=== PATIENT | female | born 1965 | race Caucasian/White ===

== ENCOUNTER 2023-04-20 09:19 | Day surgery (SDC) | payer OTHER ==
[2023-04-16 16:29] VITALS: BMI 30.1
[2023-04-20] MEDS: LACTATED RINGERS 1,000 ML IV SCH ×2 (09:14→15:18)
[~2023-04-20 09:19] MED LIST: ACETAMINOPHEN TAB 500 MG TAB PO PRN; DEXAMETHASONE SOD PHOSPHATE 10 MG/ML 1 ML VIAL IV PRN; DEXAMETHASONE SOD PHOSPHATE 4 MG/ML 1 ML VIAL IV ONE; DOCUSATE 100 MG CAP PO PRN; FAMOTIDINE 20 MG/2 ML VIAL IVP PRN; HYDROmorphone 0.5 MG/0.5 ML SYRINGE IVP PRN; KETOROLAC 15 MG/ML 1 ML VIAL IVP PRN; LIDOCAINE 1% (10MG/ML) FOR IV START INTRADERMA PRN; MIDAZOLAM 2 MG/2 ML VIAL IV PRN; ONDANSETRON 4 MG/2 ML VIAL IVP ONE; ONDANSETRON 4 MG/2 ML VIAL IVP PRN; ROPIVACAINE/EPI/CLONIDINE/KET 50 ML SYRINGE MISCELLANE PRN; TRANEXAMIC 1,000 MG/100ML-NACL 1,000 MG in SALINE 1 100ML.BAG IV PRN; TRANEXAMIC 1,000 MG/100ML-NACL 1,000 MG in SALINE 1 100ML.BAG IVPB PRN; VANCOMYCIN 1,500 MG in SODIUM CHLORIDE 0.9% 500 ML 500 ML IVPB PRN; oxyCODONE ER 10 MG TAB.ER.12H PO PRN
[2023-04-20] MEDS ORDERED: fentaNYL (PF) 50 MCG/ML 2 ML AMP IVP ONE (10:16)
[2023-04-20] MEDS ORDERED: MIDAZOLAM 2 MG/2 ML VIAL IVP ONE (10:16)
--- NOTE | 2023-04-20 10:28 | P.ANPRN ---
Procedure Note - Anesthesia - Nerve Block Performed Left Rufus Single Time Out Performed: Yes (1015) Date of Procedure: 04/20/23 Location of Patient: PreOp Indication: Dx/Pain Location (left hip), Requested by Surgeon Specifically requested for management of pain by DrBienvenido: Luis Chan Sedation Type: Sedate with meaningful contact maintained Position: Supine Catheter: None Needle Types: Pajunk Needle Gauge: 21 Ultrasound used to visualize needle placement: Yes Ultrasound used to observe medication spread: Yes Injectate: 0.5% Ropivacaine (see comment for volume) (25 mL +10 mL of normal saline) Blood Aspirated: No Pain Paresthesia on Injection Noted: No Resistance on Injection: Normal Image Stored and Saved: Yes Events: Uneventful and Well Tolerated
[2023-04-20] MEDS ORDERED: ROCURONIUM 10 MG/ML (5 ML VIAL) IV ONE (11:17)
[2023-04-20] MEDS ORDERED: HYDROmorphone (PF) 1 MG/ML ONE (11:17)
[2023-04-20] MEDS ORDERED: fentaNYL (PF) 50 MCG/ML 2 ML AMP ONE (11:17)
[2023-04-20] MEDS ORDERED: SUCCINYLCHOLINE CHLORIDE 200 MG/10 ML VIAL IV ONE (11:17)
[2023-04-20] MEDS ORDERED: SODIUM CHLORIDE 0.9% (PF) 10 ML VIAL ONE (11:17)
[2023-04-20] MEDS ORDERED: ROPIVACAINE 5 MG/ML 30 ML VIAL ONE (11:17)
[2023-04-20] MEDS ORDERED: PROPOFOL 10 MG/ML 20 ML VIAL IV ONE (11:17)
[2023-04-20] MEDS ORDERED: LIDOCAINE 1% INJ 10MG/ML (20 ML MDV) ONE (11:17)
[2023-04-20] MEDS ORDERED: TRANEXAMIC 1,000 MG/100ML-NACL PREMIX BAG ONE (11:17)
[2023-04-20] MEDS ORDERED: MIDAZOLAM 2 MG/2 ML VIAL ONE (11:17)
--- NOTE | 2023-04-20 13:42 | XR ---
EXAMINATION TYPE: XR Hip Limited LT DATE OF EXAM: 04/20/2023 CLINICAL HISTORY: Postoperative evaluation TECHNIQUE: Single portable view of the left hip was submitted. FINDINGS: Noted are changes of total hip arthroplasty with femoral and acetabular components appearin g well seated. Alignment is anatomic. Postsurgical soft tissue changes are evident. IMPRESSION: Satisfactory postoperative alignment
--- NOTE | 2023-04-20 13:42 | FL ---
EXAMINATION TYPE: FL guidance operating room DATE OF EXAM: 04/20/2023 HISTORY: Fluoroscopy time Total dose area product (DAP) in uGy*m?, mGy*cm? (or similar): 1.7400 IMPRESSION: 1. Fluoroscopy time.
[2023-04-20] MEDS ORDERED: HYDROmorphone 0.5 MG/0.5 ML SYRINGE IVP PRN ×2 (13:52)
[2023-04-20] MEDS ORDERED: NALOXONE 0.4 MG/ML 1 ML VIAL IV PRN (13:52)
[2023-04-20] MEDS ORDERED: HYDROcodone/APAP 5-325MG 1 EACH TAB PO PRN (13:52)
[2023-04-20] MEDS ORDERED: hydrOXYzine pamoate 25 MG CAP PO PRN (13:52)
[2023-04-20] MEDS ORDERED: HYDROmorphone 1 MG/ML 1 ML SYRINGE IVP PRN (13:52)
[2023-04-20] MEDS ORDERED: ONDANSETRON 4 MG/2 ML VIAL IVP PRN (13:52)
[2023-04-20] MEDS ORDERED: diphenhydrAMINE 50 MG/ML 1 ML VIAL IVP ONE ×2 (14:10)
[2023-04-20] MEDS ORDERED: droPERidol 5 MG/2 ML VIAL IVP ONE ×2 (14:25)
[2023-04-20] MEDS ORDERED: LACTATED RINGERS 1,000 ML IV ONE ×2 (14:26)
--- NOTE | 2023-04-20 18:46 | P.OP ---
Date of Procedure: 04/20/23 Preoperative Diagnosis: 1. Severe left hip osteoarthritis Postoperative Diagnosis: Same Procedure(s) Performed: 1. Left direct anterior total hip arthroplasty 2. Location of negative pressure incisional wound VAC, left hip less than 50 cm, incision measuring 15 cm Implants: 1. Yolis Trident II Acetabular Cup, Size #50 2. [place] Insignia Size # 6 Femoral Stem, High Offset 3. Biolox delta femoral head, 36 mm, - 5 mm neck Anesthesia: GATITO, regional Surgeon: Luis Chan Ground Crewman Aircraft Support #1: Nyla Silva Estimated Blood Loss (ml): 200 IV fluids (ml): 800 Pathology: none sent Condition: stable Disposition: PACU Indications for Procedure: I had a long discussion with the patient in the office on the potential risks and complications of an elective total hip replacement through a direct anterior approach. Risks discussed include, but are certainly not limited to, risks from anesthesia, superficial infection requiring local wound care or antibiotics, deep esteban-prosthetic joint infection and the treatment required to eradicate infection, intraoperative fracture, postoperative periprosthetic fracture, damage to local blood vessels or nerves particularly the lateral femoral cutaneous nerve, delayed wound healing requiring local wound care or possibly surgical debridement, hip dislocation, leg length discrepancy, soft tissue irritation around the total hip implant such as iliopsoas tendinitis or trochanteric bursitis, wear and osteolysis from the implants, squeaking or audible noises, groin pain, thigh pain, heterotopic ossification, stiffness, aseptic loosening of the implants, dissatisfaction with surgical outcome, need for revision surgery, DVT, PE, swelling of the operative extremity, acute coronary event, stroke, failure to thrive, and possibly loss of life or limb. T he patient understands that while these are the most common complications after an elective hip replacement there are certainly other less common complications possible. They were given ample time to ask questions regarding the potential complications of a hip replacement. Following our discussion the patient provided their verbal and written consent to go forward with an elective total hip replacement. Operative Findings: Severe left hip osteoarthritis Description of Procedure: The patient was identified in the preoperative holding area and the correct hip was marked with my initials. I reviewed the procedure and consent with the patient. All of their questions were answered. The patient was then brought back into the operating room by anesthesia. While on the gurney anesthesia was administered by the anesthesia team. Preoperative antibiotics and tranexamic acid were also given. After the patient was under anesthesia I examined their ankles to determine their preoperative leg length discrepancy. The skin over the anterior aspect of the hip was shaved to remove hair over the site of planned incision. Both feet and ankles were padded with webril and boots for the [place] were applied. The patient was then carefully transferred onto the [place] table. A perineal post was immediately placed. The arms were placed on arm hol ders and were well-padded. Both boots were secured to the spars on the [place] table. The patient was positioned so that the pelvis was centered over the post. Nonsterile drapes were applied. A timeout was performed identifying the correct patient, operative extremity, and procedure. At this point fluoroscopy was brought in to take preoperative images of the pelvis and operative hip. Using the standing AP pelvis from the office as a template, a comparable image was obtained with fluoroscopy. A metallic bar was used to create a bi-ischial line for use as a reference to leg length adjustments during the procedure. Global offset was also measured on both the operative and nonoperative leg. Fluoroscopy was then brought out and a pre-scrub using a chlorhexidine scrub brush was performed. The operative limb was then prepped and draped in the standard sterile fashion. An anterior longitudinal incision was made lateral and distal to the ASIS. The skin and subcutaneous tissues were incised sharply. The underlying tensor fascia was identified and incised in its midportion. The fascia was dissected free from the underlying muscle and the muscle belly was retracted. A blunt tipped cobra retractor was placed over the superior neck under the muscle fibers of the gluteus minimus. The deep enveloping fascia of the tensor was incised. The anterior leash of vessels were then identified and cauterized. The fascia between the rectus and the capsule was then incised and the pre-capsular fat was excised. A second Cobra was placed inferior to the neck. The interval between the rectus and iliocapsularis and the hip capsule was developed and a retractor was placed carefully over the anterior rim of the acetabulum. A T-shaped anterior capsulotomy was performed. The superior capsular leaflet was left in place in the inferior capsular flap was excised. The Cobra retractors were placed intracapsularly. We then made a femoral neck osteotomy according to preoperative and intraoperative templating and confirmed the level of the osteotomy using fluoroscopic imaging. The femoral head was removed, passed off to the back table, and sized. The superior capsular flap was excised. Retractors were placed circumferentially exposing the acetabulum. We then circumferentially debrided the acetabulum free of labrum and osteophytes. The pulvinar was removed to fully visualize the cotyloid fossa. We then sequentially reamed to achieve peripheral fit and excellent bleeding subchondral bone. The socket was thoroughly irrigated. The acetabular component was impacted into the appropriate position using fluoroscopy to guide version, inclination, and depth of insertion taking care to have a comparable image of the AP pelvis to the standing image taken in the office. An excellent press-fit was achieved and final position was confirmed using fluoroscopy. The press fit was augmented with bony cancellus dome screws. The liner was then impacted into the socket. Attention was then turned to the femur. The remnant dorsal lateral capsule was excised. The short external rotators were visible and protected. A bone hook was used to confirm appropriate translation of the trochanter away from the acetabulum. The leg was then extended and adducted and the bone hook was used to elevate the femur for broaching. A box osteotome and blunt tipped canal sound was then utilized to gain access to the femoral canal. We then sequentially broached the femur in appropriate anteversion until excellent torsional stability was achieved. The neck cut was brought flush to the trial broach with a calcar planar. A trial neck and head were then placed onto the broach and the hip was atraumatically reduced under direct visualization. External rotation to 90 was performed to assess stability. Fluoroscopy was brought in. An AP and lateral fluoroscopic image of the proximal femur was obtained to assess position and fill of the trial broach. An AP of the pelvis was then obtained and matched to the preoperative image taken. A bi-ischial bar was then placed and measurements were taken to assess changes in length and offset. The hip was then carefully dislocated, the proximal femur was exposed, and the trial implants were removed. The wound and proximal femur was thoroughly irrigated using sterile saline and pulsatile lavage. The final femoral implant was dispensed and gently tapped into place generating an excellent press-fit. The trunnion was cleansed and the final head was tapped into place to engage the Ricardo taper. The acetabulum was irrigated and visua lized to be free of debris. The hip was carefully reduced. Stability was checked clinically with external rotation to 90 and there was no evidence of instability. Final fluoroscopic images were taken. The wound was then thoroughly irrigated and soaked with a dilute Betadine rinse for 3 minutes. 3 L of sterile saline was irrigated through the wound using pulsatile lavage. Local anesthetic cocktail was injected into the soft tissues around the surgical field. A deep drain was placed. The wound was then closed in layers. A Prevena incisional wound VAC was placed over the surgical incision due to the patient's body habitus and a sterile dressing was applied over the drain site. The drapes were taken down and the patient was carefully transferred off of the [place] table. Following removal of the boots the leg lengths felt acceptable. The patient was then taken to recovery room having tolerated the procedure well. Nyla Silva PA-C was required as a skilled hygiene assistant for patient positioning, surgical exposure, retraction, placement of implants, and closure of the surgical wound. PLAN: The patient can weight-bear as tolerated on the operative extremity. 2 doses of postoperative antibiotics. DVT prophylaxis with aspirin 81 mg twice a day based on preoperative risk stratification. Physical therapy for gait training. Discontinue drain postoperative day #1 if output is less than 100 mL per shift. The patient will be sent home on doxycycline 100 mg twice a day due to her body habitus. Her incisional wound VAC will be left in place for 2 weeks.
--- NOTE | 2023-04-20 18:58 | P.CONS ---
History of Present Illness - Reason for Consult Consult date: 04/20/23 hypotension Requesting physician: Luis Chan - Chief Complaint hip pain - History of Present Illness Patient is a 57-year-old female with osteoarthritis who presented for elective left total hip arthroplasty. Postoperatively she did have some mild hypotension. Patient seen and examined at bedside. She denies any lightheadedness, dizziness, chest pain, shortness of breath. She is overall feeling well. She denies any nausea. Postoperative pain is well controlled. At home she was requiring a walker and NSAIDs due to leg stiffness. She has no other complaints currently. Vital signs reviewed General: nontoxic, no distress, appears at stated age Derm: warm, dry Eyes: EOMI, no lid lag, anicteric sclera, pupils equal round reactive to light ENT: Nose and ears atraumatic, no thrush, no pharyngeal erythema Cardiovascular: S1S2 irreg, no murmur, positive posterior tibial pulse bilateral, no edema Lungs: clear to auscultation bilateral, no rhonchi, no rales, no wheeze, no accessory muscle use Abdominal: soft, nontender to palpation, no guarding, no appreciable organomegaly, normal bowel sounds Ext: no gross muscle atrophy, no contractures Neuro: CN II-XII grossly intact, no focal neuro deficits Psych: Alert, oriented, appropriate affect Assessment/Plan: 57-year-old female status post left total hip arthroplasty. Postoperative hypotension -Continue lactated Ringer's at 100 mL/h -Patient has slightly irregular heart rate will check EKG -Discussed with patient limiting IV narcotics due to hypotension and using oral. She is in agreement. - CBC in AM - LR 500 cc bolus Imaging: none new Data Review: Preop blood work revealed hemoglobin 13.7, potassium 4.8, BUN 16.8, creatinine 0.7 Thank you for allowing us to participate in the care of this pleasant patient. Do not hesitate to contact us with questions. Someone can be reached from the [facility] hospitalist group all hours of the day at [phone] or via perfect serve. This dictation was prepared using [employer] voice recognition software. Though every attempt is made to correct errors during dictation some may still exist. Past Medical History Past Medical History: Osteoarthritis (OA) History of Any Multi-Drug Resistant Organisms: MRSA Year Discovered:: 2020 OR 2022 MDRO Source:: INFECTION ON FINGER(NOTSURE WHICH ONE) Additional Past Surgical History / Comment(s): D & C. COLONOSCOPY,. Left total hip arthroplasty (04/20/23) Past Anesthesia/Blood Transfusion Reactions: No Reported Reaction Past Psychological History: No Psychological Hx Reported Smoking Status: Former smoker Past Alcohol Use History: Rare Additional Past Alcohol Use History / Comment(s): QUIT SMOKING IN HER 20'S Past Drug Use History: None Reported - Past Family History Sister(s) Family Medical History: Cancer Additional Family Medical History / Comment(s): 2 SISTERS WITH CANCER Medications and Allergies Home Medications Medication Instructions Recorded Confirmed Type Acetaminophen [Tylenol Extra 500 mg PO Q6HR PRN 04/16/23 04/20/23 History Strength] Mupirocin 2% Oint [Bactroban 2% 1 applic NASAL DIRECTED 04/16/23 04/20/23 History Oint] Allergies Allergy/AdvReac Type Severity Reaction Status Date / Time Sulfa (Sulfonamide Allergy Rash/Hives Verified 04/20/23 09:58 Antibiotics) Physical Exam Osteopathic Statement: *. No significant issues noted on an osteopathic structural exam other than those noted in the History and Physical/Consult. Vitals: Vital Signs Temp Pulse Resp BP Pulse Ox 04/20/23 17:44 79 93/64 97 04/20/23 17:30 76 84/55 97 04/20/23 17:15 74 85/55 95 04/20/23 16:59 84 99/65 96 04/20/23 16:44 70 94/62 96 04/20/23 16:37 98 04/20/23 16:31 89 103/70 97 04/20/23 16:14 77 89/59 97 04/20/23 15:59 95 100/66 96 04/20/23 15:44 91 105/70 97 04/20/23 15:30 95 108/68 96 04/20/23 15:01 84 16 96/53 98 04/20/23 14:46 82 16 87/51 97 04/20/23 14:31 86 16 90/46 96 04/20/23 14:16 82 16 116/51 96 04/20/23 14:01 87 16 112/69 96 04/20/23 13:46 97.6 F 101 H 16 116/60 97 04/20/23 10:25 100 16 135/58 99 04/20/23 09:46 97 F L 100 16 157/83 98 Intake and Output 04/20/23 04/20/23 04/20/23 06:59 14:59 22:59 Intake Total 925 400 Output Total 200 Balance 725 400 Intake: IV 925 400 Output: Estimated Blood Loss 200 Other: # Voids 0 Weight 90.72 kg 90.72 kg
[2023-04-20] MEDS ORDERED: LACTATED RINGERS 500 ML IV SCH (19:00)
[2023-04-20] MEDS ORDERED: LACTATED RINGERS 500 ML IV ONE (19:00)
[2023-04-20] MEDS: ASPIRIN 81 MG PO SCH (20:11)
[2023-04-20 20:16] LABS: HCT 34.4 % (34.0-46.0); HGB 11.3 gm/dL (11.4-16.0); MCH 32.3 pg (25.0-35.0); MCHC 32.9 g/dL (31.0-37.0); MCV 98.1 fL (80.0-100.0); Mean Platelet Volume 7.3; Platelet Count 253 k/uL (150-450); RBC 3.51 m/uL (3.80-5.40); RDW 12.7 % (11.5-15.5)
[2023-04-20] MEDS ORDERED: SENNOSIDES-DOCUSATE SODIUM 1 EACH TAB PO SCH (21:00)
[2023-04-21] MEDS: LACTATED RINGERS 1,000 ML IV SCH ×3 (01:06→09:13)
[2023-04-21] MEDS: HYDROcodone/APAP 5-325MG 1 EACH TAB PO PRN ×3 (02:10→16:10)
[2023-04-21 07:54] LABS: HCT 27.3 % (34.0-46.0); MCH 32.3 pg (25.0-35.0); MCHC 33.8 g/dL (31.0-37.0); MCV 95.6 fL (80.0-100.0); Mean Platelet Volume 6.9; Platelet Count 258 k/uL (150-450); RBC 2.85 m/uL (3.80-5.40); RDW 12.6 % (11.5-15.5); WBC 10.6 k/uL (3.8-10.6)
[2023-04-21 07:59] LABS: HGB 9.2 gm/dL (11.4-16.0)
[2023-04-21] MEDS: ASPIRIN 81 MG PO SCH (09:12)
--- NOTE | 2023-04-21 09:14 | P.DS ---
Providers Expected date of discharge: 04/21/23 Attending physician: Luis Chan Consults: 04/20/23 17:06 Consult Physician Routine Consulting Provider: Andra Melendez Consult Reason/Comments: medical management Do you want consulting provider notified?: Already Contacted Primary care physician: Bradford Bryaniovanni [facility] Course: This is a 57-year-old female who has been followed in our office by Dr. Chan for continued complaints of left hip pain due to left hip osteoarthritis. Treatment options were discussed, and patient elected to undergo a left direct anterior total hip arthroplasty. Patient was seen pre-operatively by Dr. Yadav and cleared for surgery. Patient underwent a left direct anterior total hip arthroplasty on 04/20/[address] Chan. The procedure was performed without complication or sequelae. The patient is doing fairly well postoperatively. Vital signs and labs are stable on postoperative day #1. Patient was examined bedside this morning with Dr. Chan. Patient states she is overall doing well and the pain in the hip is well-controlled. She is currently up to the bedside chair. Patient will work with physical therapy this morning. Patient is comfortable being discharged home today. Patient has no new complaints this morning. On examination, the patient is sitting up in the bedside chair in no apparent distress. She is alert and orientated 3. On inspection of the left hip, there is a Prevena wound vac in place that has a good seal at this time. Hemovac drain removed bedside this morning during exam. Motor and sensory function is intact of the left lower extremity. Femoral nerve function intact. The dorsalis pedis pulse is easily palpable, the left lower extremity is warm and well perfused with brisk capillary refill. Calf is soft and non-tender to palpation. Patient is discharged home with home health care today in good condition, pending medical clearance. Patient will follow-up with Dr. Chan in the office in 1 week for wound vac removal at [facility]. Please see med rec for accurate list of discharge medication. Plan - Discharge Summary Discharge Rx Participant: No New Discharge Prescriptions: New HYDROcodone/APAP 5-325MG [[place] 5-325] 1 - 2 tab PO Q6HR PRN 7 Days #32 tab PRN Reason: Pain Diclofenac Sodium [Voltaren] 75 mg PO BID 30 Days #60 tab Doxycycline Monohydrate 100 mg PO BID 14 Days #28 cap Aspirin 81 mg PO BID 30 Days #60 tab Docusate [Colace] 100 mg PO BID #60 capsule Omeprazole 40 mg PO DAILY 30 Days #30 cap No Action Mupirocin 2% Oint [Bactroban 2% Oint] 1 applic NASAL DIRECTED Acetaminophen [Tylenol Extra Strength] 500 mg PO Q6HR PRN PRN Reason: Pain Discharge Medication List Acetaminophen [Tylenol Extra Strength] 500 mg PO Q6HR PRN 04/16/23 [History] Mupirocin 2% Oint [Bactroban 2% Oint] 1 applic NASAL DIRECTED 04/16/23 [History] Aspirin 81 mg PO BID 30 Days #60 tab 04/21/23 [Rx] Diclofenac Sodium [Voltaren] 75 mg PO BID 30 Days #60 tab 04/21/23 [Rx] Docusate [Colace] 100 mg PO BID #60 capsule 04/21/23 [Rx] Doxycycline Monohydrate 100 mg PO BID 14 Days #28 cap 04/21/23 [Rx] HYDROcodone/APAP 5-325MG [[place] 5-325] 1 - 2 tab PO Q6HR PRN 7 Days #32 tab 04/21/23 [Rx] Omeprazole 40 mg PO DAILY 30 Days #30 cap 04/21/23 [Rx] Follow up Appointment(s)/Referral(s): Lius Chan MD [Medical Doctor] - 1 Week Activity/Diet/Wound Care/Special Instructions: Weight bear to tolerance on operative extremity with a walker. Keep Prevena wound vac in place until follow-up in the office. Do not remove. Call the office with questions regarding the wound vac. Take pain medications as needed. Take aspirin 81mg BID x 4 weeks for blood clot prevention. Follow-up in the office in one week at [facility]. Call the office with any questions or concerns, Discharge Disposition: HOME WITH HOME HEALTH SERVICES
--- NOTE | 2023-04-21 13:28 | P.PN ---
Subjective Progress Note Date: 04/21/23 Patient is a 57-year-old female with osteoarthritis who presented for elective left total hip arthroplasty. Postoperatively she did have some mild hypotension. While rsolved with LR 500 cc bolus. Patient seen and examined at bedside. She reports feeling behind as she did not get up after surgry due to hypotension. She is worried about an infection in the surgical site, as her had one after surgery. SHe is also worried about a DVT as her niece had one after a calf surgery. She denies any lightheadedness, chest pain, shortness of breath, or dizziness. Vital signs reviewed General: nontoxic, no distress, appears at stated age Cardiovascular: S1S2 reg, no murmur, positive posterior tibial pulse bilateral, Lungs: CTA bilateral, no rhonchi, no rales , no accessory muscle use Ext: no gross muscle atrophy, no edema b/l lower extremities, no contractures Neuro: CN II-XI grossly intact, no focal neuro deficits Psych: Alert, oriented, appropriate affect Assessment/Plan: 57-year-old female status post left total hip arthroplasty. Acute blood loss anemia, anticipted outcome of surgery - Ferrous sulfate 142 mg daily add to discharge tab - repeat CBC in 1 week with PCP Post-op hypotnesion, resolved Medically optimized for discharge, when deeemed arrproriate by ortho Imaging: None new Data Review: CBC reviewed and remarkable for hemoglobin 0.2 Thank you for allowing us to participate in the care of this pleasant patient. Do not hesitate to contact us with questions. Someone can be reached from the [facility] hospitalist group all hours of the day at [phone] or via perfect serve. This dictation was prepared using [employer] voice recognition software. Though every attempt is made to correct errors during dictation some may still exist. Objective - Vital Signs Vital signs: Vital Signs Temp 97.6 F 04/21/23 07:13 Pulse 103 H 04/21/23 07:13 Resp 17 04/21/23 07:13 BP 101/64 04/21/23 07:13 Pulse Ox 93 L 04/21/23 07:13 FiO2 Intake & Output 04/20/23 04/21/23 04/21/23 18:59 06:59 18:59 Intake Total 1325 Output Total 200 60 Balance 1125 -60 Weight 90.72 kg Intake: IV 1325 Output: Drainage 60 Left Hip 60 Estimated Blood Loss 200 Other: Voiding Method Bedside Commode Bedside Commode # Voids 0 1 1 - Labs CBC & Chem 7: 04/21/23 07:17 Labs: Abnormal Lab Results - Last 24 Hours (Table) 04/20/23 04/21/23 Range/Units 19:09 07:17 WBC 12.0 H (3.8-10.6) k/uL RBC 3.51 L 2.85 L (3.80-5.40) m/uL Hgb 11.3 L 9.2 L D (11.4-16.0) gm/dL Hct 27.3 L (34.0-46.0) %
[2023-04-21 15:17] VITALS: BP 102/65; PULSE 100; RESP 19; TEMP 98.6
== END 2023-04-21 16:41 | disposition home health service (06) ==
LOC: OR 09:19 → 4SSUR 14:39 → OR 04-21 16:41
PROVIDERS: ATTEND Orthopaedic Surgery
DX: M16.12 Unilateral primary osteoarthritis, left hip (principal); Z79.82 Long term (current) use of aspirin; Z79.899 Other long term (current) drug therapy; Z87.891 Personal history of nicotine dependence; Z88.1 Allergy status to other antibiotic agents; Z88.2 Allergy status to sulfonamides
CPT/HCPCS: 94760; 97161; 84484; 85027 ×2; 73501; 27130; 64415; J2250; J1200; J1100; J0690 ×2; J2405; J3010; J3490; J1885; J1790; 64447; 86850; 86900; 86901

== ENCOUNTER → 2023-07-23 | Outpatient (CLI) | payer OTHER ==
[2023-07-23 10:32] LABS: INR 0.9 (<1.2); Partial Thromboplastin Time 23.9 sec (22.0-30.0); Prothrombin Time 10.4 sec (10.0-12.5)
[2023-07-23 15:03] LABS: HCT 42.9 % (37.2-46.3); HGB 14.4 g/dL (12.0-15.0); MCH 30.5 pg (27.0-32.0); MCHC 33.6 g/dL (32.0-37.0); MCV 90.9 FL (80.0-97.0); Mean Platelet Volume 9.5 FL (9.5-12.2); NRBC Per 100 WBC 0 X 10*3/uL (0.00-0.01); Platelet Count 272 X 10*3/uL (140-440); RBC 4.72 X 10*6/uL (4.10-5.20); RDW 12.8 % (11.5-14.5); WBC 5.38 X 10*3/uL (4.50-10.00)
[2023-07-23 15:22] LABS: ALT 8 U/L (8-44); AST 15 U/L (13-35); Albumin 4.3 g/dL (3.8-4.9); Albumin/Globulin Ratio 1.59 Ratio (1.60-3.17); Alkaline Phosphatase 111 U/L (41-126); BUN/Creat Ratio 18.14 Ratio (12.00-20.00); Blood Urea Nitrogen 12.7 mg/dL (9.0-27.0); Calcium 9.9 mg/dL (8.7-10.3); Chloride 104 mmol/L (96-109); Globulin 2.7 g/dL (1.6-3.3); Glucose 100 mg/dL (70-110); Potassium 4.3 mmol/L (3.5-5.5); Sodium 141 mmol/L (135-145); Total Bilirubin 0.4 mg/dL (0.3-1.2)
== END | disposition home or self-care (01) ==
LOC: LABPAT 09:15
PROVIDERS: ATTEND Orthopaedic Surgery
DX: Z01.812 Encounter for preprocedural laboratory examination (principal); M16.11 Unilateral primary osteoarthritis, right hip; Z22.322 Carrier or suspected carrier of Methicillin resistant Staphylococcus aureus
CPT/HCPCS: 80053; 83036; 85027; 85610; 85730; 86850; 86900; 86901; 87070

== ENCOUNTER → 2023-08-10 | Outpatient (CLI) | payer OTHER ==
[2023-08-10 13:39] LABS: INR 0.9 (<1.2); Partial Thromboplastin Time 22.9 sec (22.0-30.0); Prothrombin Time 10.1 sec (10.0-12.5)
[2023-08-10 18:32] LABS: HGB 14.2 g/dL (12.0-15.0); MCV 90.7 FL (80.0-97.0); Mean Platelet Volume 9.5 FL (9.5-12.2); NRBC Per 100 WBC 0 X 10*3/uL (0.00-0.01); Platelet Count 288 X 10*3/uL (140-440); RBC 4.74 X 10*6/uL (4.10-5.20); RDW 13.1 % (11.5-14.5); WBC 6.58 X 10*3/uL (4.50-10.00)
[2023-08-10 18:51] LABS: ALT 8 U/L (8-44); AST 16 U/L (13-35); Albumin 4.1 g/dL (3.8-4.9); Albumin/Globulin Ratio 1.64 Ratio (1.60-3.17); Alkaline Phosphatase 104 U/L (41-126); BUN/Creat Ratio 25.86 Ratio (12.00-20.00); Blood Urea Nitrogen 18.1 mg/dL (9.0-27.0); Carbon Dioxide 23.4 mmol/L (21.6-31.8); Chloride 106 mmol/L (96-109); Globulin 2.5 g/dL (1.6-3.3); Glucose 99 mg/dL (70-110); Potassium 4.2 mmol/L (3.5-5.5); Sodium 140 mmol/L (135-145); Total Bilirubin 0.4 mg/dL (0.3-1.2); Total Protein 6.6 g/dL (6.2-8.2)
== END | disposition home or self-care (01) ==
LOC: LABPAT 12:17
PROVIDERS: ATTEND Orthopaedic Surgery
DX: Z01.812 Encounter for preprocedural laboratory examination (principal); M16.11 Unilateral primary osteoarthritis, right hip; Z22.322 Carrier or suspected carrier of Methicillin resistant Staphylococcus aureus
CPT/HCPCS: 80053; 83036; 85027; 85610; 85730; 86850; 86900; 86901; 87070

== ENCOUNTER 2023-08-17 08:54 | Day surgery (SDC) | payer OTHER ==
[~2023-08-17 08:54] MED LIST changes: -HYDROmorphone 0.5 MG/0.5 ML SYRINGE IVP PRN; -ROPIVACAINE/EPI/CLONIDINE/KET 50 ML SYRINGE MISCELLANE PRN; +VANCOMYCIN 1,250 MG in SODIUM CHLORIDE 0.9% 250 ML IVPB PRN; -VANCOMYCIN 1,500 MG in SODIUM CHLORIDE 0.9% 500 ML 500 ML IVPB PRN
[2023-08-17] MEDS ORDERED: LACTATED RINGERS 1,000 ML IV ONE ×2 (09:23→12:42)
[2023-08-17] MEDS ORDERED: MIDAZOLAM 2 MG/2 ML VIAL IVP ONE (10:00)
[2023-08-17] MEDS: ROPIVACAINE/EPI/CLONIDINE/KET 50 ML SYRINGE MISCELLANE PRN ×2 (10:29→12:31)
[2023-08-17] MEDS ORDERED: GLYCOPYRROLATE 0.2 MG/ML 2 ML VIAL ONE (10:38)
[2023-08-17] MEDS ORDERED: TRANEXAMIC 1,000 MG/100ML-NACL PREMIX BAG ONE (10:38)
[2023-08-17] MEDS ORDERED: PHENYLEPHRINE 10 MG/ML VIAL ONE (10:38)
[2023-08-17] MEDS ORDERED: DEXAMETHASONE SOD PHOSPHATE 4 MG/ML 1 ML VIAL ONE (10:38)
[2023-08-17] MEDS ORDERED: SUCCINYLCHOLINE CHLORIDE 200 MG/10 ML VIAL IV ONE (10:38)
[2023-08-17] MEDS ORDERED: ROCURONIUM 10 MG/ML (5 ML VIAL) IV ONE (10:38)
[2023-08-17] MEDS ORDERED: fentaNYL (PF) 50 MCG/ML 2 ML AMP ONE (10:38)
[2023-08-17] MEDS ORDERED: NEOSTIGMINE 1 MG/ML 10 ML VIAL ONE (10:38)
[2023-08-17] MEDS ORDERED: PROPOFOL 10 MG/ML 20 ML VIAL IV ONE (10:38)
[2023-08-17] MEDS ORDERED: LIDOCAINE 1% INJ 10MG/ML (20 ML MDV) ONE (10:38)
[2023-08-17] MEDS ORDERED: ROPIVACAINE 5 MG/ML 30 ML VIAL ONE (10:38)
[2023-08-17] MEDS ORDERED: MIDAZOLAM 2 MG/2 ML VIAL ONE (10:38)
[2023-08-17] MEDS ORDERED: SODIUM CHLORIDE 0.9% 100 ML with ceFAZolin 2,000 MG IV ONE ×2 (11:07)
[2023-08-17] MEDS ORDERED: VANCOMYCIN 1,000 MG VIAL MISCELLANE ONE ×2 (12:23→12:31)
[2023-08-17] MEDS ORDERED: MAGNESIUM HYDROXIDE 2,400 MG/30 ML CUP PO PRN (12:45)
[2023-08-17] MEDS ORDERED: ONDANSETRON 4 MG/2 ML VIAL IVP PRN (12:45)
[2023-08-17] MEDS ORDERED: HYDROmorphone 0.5 MG/0.5 ML SYRINGE IVP PRN ×2 (12:45)
[2023-08-17] MEDS ORDERED: NALOXONE 0.4 MG/ML 1 ML VIAL IV PRN (12:45)
[2023-08-17] MEDS ORDERED: HYDROcodone/APAP 5-325MG 1 EACH TAB PO PRN (12:45)
[2023-08-17] MEDS ORDERED: HYDROcodone/APAP 7.5-325MG 1 EACH TAB PO PRN (12:45)
[2023-08-17] MEDS ORDERED: hydrOXYzine pamoate 25 MG CAP PO PRN (12:45)
[2023-08-17] MEDS ORDERED: HYDROmorphone 1 MG/ML 1 ML SYRINGE IVP PRN (12:45)
--- NOTE | 2023-08-17 13:13 | FL ---
EXAMINATION TYPE: FL guidance operating room, XR Hip Limited RT Intraoperative/procedural fluoroscopi c services were provided. Total fluoroscopy time is 41 seconds with a total of 7 submitted images to PACS. Please see the operative/procedural note for further details. DAP: 2.8143 Gycm2
[2023-08-17] MEDS: HYDROmorphone 0.5 MG/0.5 ML SYRINGE IVP PRN ×2 (13:30→14:27)
--- NOTE | 2023-08-17 13:30 | P.OP ---
Date of Procedure: 08/17/23 Preoperative Diagnosis: Severe right hip osteoarthritis Postoperative Diagnosis: Same Procedure(s) Performed: 1. Right direct anterior total hip arthroplasty 2. Application of negative pressure incision over the wound VAC, right hip, less than 50 cm, incision measuring 15 cm Implants: 1. [place] Trident II Acetabular Cup, Size #50 2. Yolis Insignia Size # 7 Femoral Stem, Standard Offset 3. Biolox delta femoral head, 36 mm, - 5 neck Anesthesia: JENNIEA, regional Surgeon: Luis Chan Clinical Informatics Director #1: Roseann Lemos Estimated Blood Loss (ml): 200 IV fluids (ml): 600 Pathology: none sent Condition: stable Disposition: PACU Indications for Procedure: I had a long discussion with the patient in the office on the potential risks and complications of an elective total hip replacement through a direct anterior approach. Risks discussed include, but are certainly not limited to, risks from anesthesia, superficial infection requiring local wound care or antibiotics, deep esteban-prosthetic joint infection and the treatment required to eradicate infection, intraoperative fracture, postoperative periprosthetic fracture, damage to local blood vessels or nerves particularly the lateral femoral cuta neous nerve, delayed wound healing requiring local wound care or possibly surgical debridement, hip dislocation, leg length discrepancy, soft tissue irritation around the total hip implant such as iliopsoas tendinitis or trochanteric bursitis, wear and osteolysis from the implants, squeaking or audible noises, groin pain, thigh pain, heterotopic ossification, stiffness, aseptic loosening of the implants, dissatisfaction with surgical outcome, need for revision surgery, DVT, PE, swelling of the operative extremity, acute coronary event, stroke, failure to thrive, and possibly loss of life or limb. The patient understands that while these are the most common complications after an elective hip replacement there are certainly other less common complications possible. They were given ample time to ask questions regarding the potential complications of a hip replacement. Following our discussion the patient provided their verbal and written consent to go forward with an elective total hip replacement. Operative Findings: Severe hip osteoarthritis Description of Procedure: The patient was identified in the preoperative holding area and the correct hip was marked with my initials. I reviewed the procedure and consent with the patient. All of their questions were answered. The patient was then brought back into the operating room by anesthesia. While on the [facility] anesthesia was administered by the anesthesia team. Preoperative antibiotics and tranexamic acid were also given. After the patient was under anesthesia I examined their ankles to determine their preoperative leg length discrepancy. The skin over the anterior aspect of the hip was shaved to remove hair over the site of planned incision. Both feet and ankles were padded with webril and boots for the [place] were applied. The patient was then carefully transferred onto the [place] table. A perineal post was immediately placed. The arms were placed on arm ho lders and were well-padded. Both boots were secured to the spars on the [place] table. The patient was positioned so that the pelvis was centered over the post. Nonsterile drapes were applied. A timeout was performed identifying the correct patient, operative extremity, and procedure. At this point fluoroscopy was brought in to take preoperative images of the pelvis and operative hip. Using the standing AP pelvis from the office as a template, a comparable image was obtained with fluoroscopy. A metallic bar was used to create a bi-ischial line for use as a reference to leg length adjustments during the procedure. Global offset was also measured on both the operative and nonoperative leg. Fluoroscopy was then brought out and a pre-scrub using a chlorhexidine scrub brush was performed. The operative limb was then prepped and draped in the standard sterile fashion. An anterior longitudinal incision was made lateral and distal to the ASIS. The skin and subcutaneous tissues were incised sharply. The underlying tensor fascia was identified and incised in its midportion. The fascia was dissected free from the underlying muscle and the muscle belly was retracted. A blunt tipped cobra retractor was placed over the superior neck under the muscle fibers of the gluteus minimus. The deep enveloping fascia of the tensor was incised. The anterior leash of vessels were then identified and cauterized. The fascia between the rectus and the capsule was then incised and the pre-capsular fat was excised. A second Cobra was placed inferior to the neck. The interval between the rectus and iliocapsularis and the hip capsule was developed and a retractor was placed carefully over the anterior rim of the acetabulum. A T-shaped anterior capsulotomy was performed. The superior capsular leaflet was left in place in the inferior capsular flap was excised. The Cobra retractors were placed intracapsularly. We then made a femoral neck osteotomy according to preoperative and intraoperative templating and confirmed the level of the osteotomy using fluoroscopic imaging. The femoral head was removed, passed off to the back table, and sized. The superior capsular flap was excised. Retractors were placed circumferentially exposing the acetabulum. We then circumferentially debrided the acetabulum free of labrum and osteophytes. The pulvinar was removed to fully visualize the cotyloid fossa. We then sequentially reamed to achieve peripheral fit and excellent bleeding subchondral bone. The socket was thoroughly irrigated. The acetabular component was impacted into the appropriate position using fluoroscopy to guide version, inclination, and depth of insertion taking care to have a comparable image of the AP pelvis to the standing image taken in the office. An excellent press-fit was achieved and final position was confirmed using fluoroscopy. The press fit was augmented with bony cancellus dome screws. The liner was then impacted into the socket. Attention was then turned to the femur. The remnant dorsal lateral capsule was excised. The short external rotators were visible and protected. A bone hook was used to confirm appropriate translation of the trochanter away from the acetabulum. The leg was then extended and adducted and the bone hook was used to elevate the femur for broaching. A box osteotome and blunt tipped canal sound was then utilized to gain access to the femoral canal. We then sequentially broached the femur in appropriate anteversion until excellent torsional stability was achieved. The neck cut was brought flush to the trial broach with a calcar planar. A trial neck and head were then placed onto the broach and the hip was atraumatically reduced under direct visualization. External rotation to 90 was performed to assess stability. Fluoroscopy was brought in. An AP and lateral fluoroscopic image of the proximal femur was obtained to assess position and fill of the trial broach. An AP of the pelvis was then obtained and matched to the preoperative image taken. A bi-ischial bar was then placed and measurements were taken to assess changes in length and offset. The hip was then carefully dislocated, the proximal femur was exposed, and the trial implants were removed. The wound and proximal femur was thoroughly irrigated using sterile saline and pulsatile lavage. The final femoral implant was dispensed and gently tapped into place generating an excellent press-fit. The trunnion was cleansed and the final head was tapped into place to engage the Ricardo taper. The acetabulum was irrigated and visu alized to be free of debris. The hip was carefully reduced. Stability was checked clinically with external rotation to 90 and there was no evidence of instability. Final fluoroscopic images were taken. The wound was then thoroughly irrigated and soaked with a dilute Betadine rinse for 3 minutes. 3 L of sterile saline was irrigated through the wound using pulsatile lavage. Local anesthetic cocktail was injected into the soft tissues around the surgical field. A deep drain was placed. The wound was then closed in layers. An incisional wound VAC was placed over the closed incision to help lower the risk of delayed wound healing and surgical site infection. A drain sponge was also applied. After connecting the wound VAC to it's power source, there was an excellent seal. The drapes were taken down and the patient was carefully transferred off of the [place] table. Following removal of the boots the leg lengths felt acceptable. The patient was then taken to recovery room having to lerated the procedure well. Roseann Lemos PA-C was required as a skilled facilities assistant for patient positioning, draping, exposure, placement of implants, closure of wound, and application of dressing. PLAN: The patient can weight-bear as tolerated on the operative extremity. 2 doses of postoperative antibiotics. DVT prophylaxis with aspirin 81 mg twice a day based on preoperative risk stratification. Physical therapy for gait training. Discontinue drain postoperative day #1 if output is less than 100 mL per shift.
[2023-08-17] MEDS ORDERED: droPERidol 5 MG/2 ML VIAL IVP ONE (13:34)
--- NOTE | 2023-08-17 13:51 | XR ---
EXAMINATION TYPE: XR Hip Limited RT DATE OF EXAM: 08/17/2023 1:44 PM CLINICAL INDICATION:Female, 57 years old with history of Status post hip surgery, assess surgical ali gnment; [facility] COMPARISON: None. TECHNIQUE: XR Hip Limited RT; hip was examined in the frontal and lateral projections and a AP pelvis . FINDINGS: Post arthroplasty changes, hardware is intact, alignment is appropriate. No evidence of fra cture. Postoperative changes of the soft tissues with subcutaneous gas. No evidence of any acute osse ous pathology or joint dislocation. IMPRESSION: Hip arthroplasty with hardware intact and in appropriate alignment. No acute fracture.
[2023-08-17] MEDS: LACTATED RINGERS 1,000 ML IV SCH ×3 (17:52→23:55)
[2023-08-17] MEDS: ASPIRIN 81 MG PO SCH (19:47)
[2023-08-17] MEDS ORDERED: SENNOSIDES-DOCUSATE SODIUM 1 EACH TAB PO SCH (21:00)
[2023-08-18] MEDS: LACTATED RINGERS 1,000 ML IV SCH ×2 (06:00→08:53)
--- NOTE | 2023-08-18 08:01 | P.PN ---
Subjective Progress Note Date: 08/18/23 The patient is doing relatively well this morning. She complains of an episode when getting up side of the bed when her leg became weak. She slid back into her bed but denies any increase in pain. She denies any other falls. She has also had issues with urinary retention per nursing. This morning she is comfortable. She has no other complaints. Objective - Vital Signs Vital signs: Vital Signs Temp 98 F 08/18/23 07:20 Pulse 74 08/18/23 07:20 Resp 17 08/18/23 07:20 BP 102/66 08/18/23 07:20 Pulse Ox 96 08/18/23 07:20 FiO2 Intake & Output 08/17/23 08/18/23 08/18/23 18:59 06:59 18:59 Intake Total 1700 Output Total 200 1240 Balance 1500 -1240 Weight 91.4 kg Intake: IV 1650 Intake, IV Titration 50 Amount ceFAZolin 2 gm In Sodium 50 Chloride 0.9% 50 ml @ 100 mls/hr IVPB Q8H [facility] Rx#: [id number] Output: Urine 620 Straight 620 Post Void Residual 620 Estimated Blood Loss 200 Other: # Voids 1 - Exam The patient is resting comfortably in her bed. She is alert and able to answer questions. A focused exam of the right lower extremity was conducted. On inspection there is no intact incisional wound VAC with good seal. Her thigh is soft. Femoral nerve function is intact. She is able to actively plantarflex and dorsiflex her ankle and her toes. Assessment and Plan Assessment: Postoperative day #1 status post right direct anterior total hip replacement, doing well Plan: 1. Weight-bear as tolerated right lower extremity 2. Up with assistance and a walker 3. 2 doses postoperative antibiotics 4. DVT prophylaxis with aspirin 81 mg twice a day 5. Internal medicine has been consulted for perioperative medical management, awaiting evaluation 6. Leave surgical dressing in place 7. PT for gait training 8. Dispo: We'll see how the patient does with physical therapy this morning. If she does well and is able to safely ambulate we will plan on discharging her home. If she needs an additional night we can keep her until tomorrow.
--- NOTE | 2023-08-18 08:03 | P.DS ---
Providers Date of admission: 08/17/23 Attending physician: Luis Chan Consults: 08/17/23 12:45 Consult Physician Routine Consulting Provider: Jeni Dudley Consult Reason/Comments: Medical Management Do you want consulting provider notified?: Yes Primary care physician: Bradford Kurt [facility] Course: The patient is a very pleasant 57-year-old female who previously underwent a left hip replacement. She did well with this and requested a right hip replacement. The patient was admitted under my care yesterday and taken to the operating room where a right total hip replacement was performed. Following surgery the Patient was transferred to the orthopedic floor in stable condition. 2 doses of IV antibiotics. Patient was started on aspirin 81 mg twice a day for DVT prophylaxis. She was transitioned from IV to oral pain medications. She was seen on postoperative day #1 and was doing well. Internal medicine was consulted and we're awaiting evaluation for perioperative medical management. The patient worked with physical therapy. She'll likely did well and was cleared for discharge home. Plan - Discharge Summary Discharge Rx Participant: No New Discharge Prescriptions: New Aspirin [Adult Low Dose Aspirin EC] 81 mg PO BID #1 tab HYDROcodone/APAP 7.5-325MG [Randall 7.5-325] 1 - 2 tab PO Q6HR PRN #32 tab PRN Reason: Pain Omeprazole 20 mg PO DAILY #30 tab Sennosides-Docusate Sodium [Senokot-S] 1 tab PO BID #60 tablet Doxycycline [Vibramycin] 100 mg PO Q12HR #14 capsule Ondansetron Odt [Zofran Odt] 4 mg PO Q8HR PRN #14 tab PRN Reason: Nausea No Action Mupirocin 2% Oint [Bactroban 2% Oint] 1 applic NASAL DIRECTED Ibuprofen 400 - 600 mg PO DIRECTED PRN PRN Reason: Pain Discharge Medication List Ibuprofen 400 - 600 mg PO DIRECTED PRN 07/27/23 [History] Mupirocin 2% Oint [Bactroban 2% Oint] 1 applic NASAL DIRECTED 07/27/23 [History] Aspirin [Adult Low Dose Aspirin EC] 81 mg PO BID #1 tab 08/17/23 [Rx] Doxycycline [Vibramycin] 100 mg PO Q12HR #14 capsule 08/17/23 [Rx] HYDROcodone/APAP 7.5-325MG [Randall 7.5-325] 1 - 2 tab PO Q6HR PRN #32 tab 08/17/23 [Rx] Omeprazole 20 mg PO DAILY #30 tab 08/17/23 [Rx] Ondansetron Odt [Zofran Odt] 4 mg PO Q8HR PRN #14 tab 08/17/23 [Rx] Sennosides-Docusate Sodium [Senokot-S] 1 tab PO BID #60 tablet 08/17/23 [Rx] Follow up Appointment(s)/Referral(s): [facility], [NON-STAFF] - As Needed Luis Chan MD [Medical Doctor] - 1 Week Patient Instructions/Handouts: Total Hip Replacement (DC) Activity/Diet/Wound Care/Special Instructions: 1. Weight-bear as tolerated on your operative extremity unless instructed otherwise. Use a walker or other assistive device to ambulate. 2. Leave surgical dressing in place. If your dressing becomes saturated with blood, there is drainage, or the dressing becomes loose please contact the office. 3. It is okay to shower with your surgical dressing, but do not submerge in water (no hot tubs, bath's, swimming etc.) 4. Make sure to take her blood clot prevention medication as prescribed (aspirin, Eliquis, Xarelto, and Plavix are commonly prescribed medications for blood clot prevention) 5. While taking Randall or Percocet for pain make sure you're taking a stool softener (Colace) and drink lots of water. 6. Keep all follow-up appointments as scheduled. You will usually be seen in 1-2 weeks following surgery. 7. Please contact the office with any questions or concerns [phone] Discharge Disposition: HOME WITH HOME HEALTH SERVICES
[2023-08-18] MEDS: ASPIRIN 81 MG PO SCH (08:53)
[2023-08-18] MEDS ORDERED: FAMOTIDINE 20 MG TAB PO SCH (09:00)
[2023-08-18 09:39] LABS: Basophils # (A) 0.01 X 10*3/uL (0.00-0.10); Basophils % (A) 0.1 %; Eosinophils # (A) 0.01 X 10*3/uL (0.04-0.35); Eosinophils % (A) 0.1 %; HCT 29.6 % (37.2-46.3); HGB 9.8 g/dL (12.0-15.0); Lymphocytes # (A) 1.64 X 10*3/uL (0.90-5.00); Lymphocytes % (A) 14.6 %; MCH 30.1 pg (27.0-32.0); MCHC 33.1 g/dL (32.0-37.0); MCV 90.8 FL (80.0-97.0); Mean Platelet Volume 9.3 FL (9.5-12.2); Monocytes # (A) 0.68 X 10*3/uL (0.20-1.00); Monocytes % (A) 6.1 %; NRBC Per 100 WBC 0 X 10*3/uL (0.00-0.01); Neutrophils # (A) 8.83 X 10*3/uL (1.80-7.70); Neutrophils % (A) 78.7 %; Platelet Count 218 X 10*3/uL (140-440); RBC 3.26 X 10*6/uL (4.10-5.20); RDW 13.3 % (11.5-14.5); WBC 11.21 X 10*3/uL (4.50-10.00)
[2023-08-18 15:31] VITALS: BP 105/66; PULSE 96; RESP 16; TEMP 98.3
[2023-08-18] MEDS ORDERED: TEMAZEPAM 15 MG CAP PO PRN (22:00)
--- NOTE | 2023-08-19 20:07 | P.ANPRN ---
Procedure Note - Anesthesia - Nerve Block Performed Right Rufus Single Time Out Performed: Yes Date of Procedure: 08/17/23 Procedure Start Time: 10:00 Procedure Stop Time: 10:03 Location of Patient: PreOp Indication: Acute Post-Operative Pain, Requested by Surgeon Sedation Type: Sedate with meaningful contact maintained Preparation: Sterile Prep Position: Supine Needle Types: Pajunk Needle Gauge: 21 Ultrasound used to visualize needle placement: Yes Ultrasound used to observe medication spread: Yes Blood Aspirated: No Pain Paresthesia on Injection Noted: No Resistance on Injection: Normal Image Stored and Saved: Yes Events: Uneventful and Well Tolerated (Ropivacaine 0.5% 20 cc plus dexamethasone 4 mg)
== END 2023-08-18 15:08 | disposition home health service (06) ==
LOC: OR 08:54 → 4SSUR 12:51 → OR 08-18 15:08
PROVIDERS: ATTEND Orthopaedic Surgery
DX: M16.11 Unilateral primary osteoarthritis, right hip (principal); F10.90 Alcohol use, unspecified, uncomplicated; Z96.641 Presence of right artificial hip joint; Z79.899 Other long term (current) drug therapy; Z88.2 Allergy status to sulfonamides; Z82.49 Family history of ischemic heart disease and other diseases of the circulatory system
CPT/HCPCS: 97116; 97162; 85025; 73501; 27130; 64450; J2250; J3370; J1100; J0690 ×3; J2405; J3490; J1885; J1170; J1790; 64447